=== PATIENT | male | born 1990 | race Caucasian/White ===

== ENCOUNTER 2016-09-03 19:17 | Emergency (ER) | payer OTHER ==
[~2016-09-03 19:17] MED LIST: BENADRYL-DPS25 MG PO; COLACE-DPS100 MG PO; DURAGESIC DPS25 MCG TD; OXY IR DPS10 MG PO; TYLENOL DPS325 MG PO; VALIUM5 MG PO
--- NOTE | 2016-09-04 06:04 | ER ---
ADMIT: 09/03/2016 RM/LOC: ER [facility] MR#: [id number] [place], [place] [id number] ANGELIA MUNGUIA [address] [place] [address] Emergency Room Report SEX: M AGE: 26 : 1990 DATE: 09/03/2016 The patient is a 26-year-old male, status post posterior craniotomy for Chiari malformation. States exposed to gastroenteritis with nausea, vomiting, diarrhea, developed throbbing headache with photophobia this evening. Exam remarkable for nontoxic, afebrile male with no meningismus. CT shows postoperative craniotomy changes. Received Zofran, Toradol, and magnesium with complete relief of pain. Follow up Dr. Hardin as needed. Ruel Dey MD/ brad JOB #: [id number] CC: Ruel Dey MD, Attending Physician Sally Hardin MD, Family Physician MD Virgilio Izaguirre MD
== END 2016-09-03 21:50 | disposition home or self-care (01) ==
LOC: ER 19:17
DX: G43.909 Migraine, unspecified, not intractable, without status migrainosus (principal); Z88.0 Allergy status to penicillin